=== PATIENT | female | born 2000 | race Caucasian/White ===

== ENCOUNTER 2023-04-26 20:12 | Emergency (ER) | payer OTHER ==
[~2023-04-26] VITALS: Ht 165.1 cm; Wt 59.9 kg
[2023-04-26 21:42] VITALS: BP 133/84; TEMP 98; O2SAT 99
[2023-04-26] MEDS ORDERED: IBUPROFEN 600 MG TABLET PO ONE (22:00)
[2023-04-26] MEDS ORDERED: IBUPROFEN 200 MG TABLET ONE (22:12)
[2023-04-26] MEDS ORDERED: IBUP-1955 PO (22:49)
== END 2023-04-26 23:07 | disposition home or self-care (01) ==
LOC: ER 20:23
DX: S89.82XA Other specified injuries of left lower leg, initial encounter (principal); Z79.899 Other long term (current) drug therapy; W18.39XA Other fall on same level, initial encounter; Y93.41 Activity, dancing; Y92.89 Other specified places as the place of occurrence of the external cause; Y99.8 Other external cause status
CPT/HCPCS: 73564-TC